=== PATIENT | male | born 1970 | race Hispanic/Latino ===

== ENCOUNTER 2020-10-22 11:24 | Emergency (ER) | payer OTHER, BC ==
[~2020-10-22] VITALS: Ht 170.2 cm; Wt 90.7 kg
[2020-10-22] MEDS ORDERED: KETOROLAC TROMETHAMINE 60 MG/2 ML VIAL IM ONE (11:45)
[2020-10-22] MEDS ORDERED: TYLENOL # 31 EA PO (13:00)
== END 2020-10-22 13:30 | disposition home or self-care (01) ==
LOC: FSED 11:35
DX: S92.332A Displaced fracture of third metatarsal bone, left foot, initial encounter for closed fracture (principal); W01.198A Fall on same level from slipping, tripping and stumbling with subsequent striking against other object, initial encounter
CPT/HCPCS: 73590; 73610; 73630; 99283; J1885